=== PATIENT | male | born 1955 | race Caucasian/White ===

== ENCOUNTER 2019-10-23 02:15 | Inpatient (IN) | payer MEDICARE, MEDICAID ==
[2019-10-23 04:07] VITALS: BP 127/78
[2019-10-23] MEDS ORDERED: Maalox 30 mL Cup PO PRN (04:08)
[2019-10-23] MEDS ORDERED: Magnesium Hydroxide (MOM) 30 mL UDC PO PRN (04:08)
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
--- NOTE | 2019-10-24 11:38 | Progress Notes ---
DATE: 10/24/2019 SUBJECTIVE: The patient has been up all night. The patient has been agitated, having delusional thoughts. OBJECTIVE: VITAL SIGNS: Temperature 96.8, pulse 70, respirations 12, blood pressure 130/60. HEENT: Normocephalic, atraumatic head exam. NECK: Supple. CARDIOVASCULAR: Regular rate and rhythm. LUNGS: Decreased breath sounds. ABDOMEN: Soft, nontender. EXTREMITIES: No edema, cyanosis or clubbing. ASSESSMENT: 1. Agitation. 2. Bipolar. 3. Schizophrenia. PLAN: The patient will continue with supportive care. The patient will get his Flomax. At this time, the patient will continue with his medical management. [facility]# [id number]
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
--- NOTE | 2019-10-26 14:27 | Progress Notes ---
DATE: 10/26/2019 SUBJECTIVE: No complaints. OBJECTIVE: VITAL SIGNS: Temperature is 98.6, pulse 70, respirations 12, blood pressure 130/60. HEENT: Normocephalic, atraumatic head exam. NECK: Supple. CARDIOVASCULAR: Regular rate and rhythm. LUNGS: Decreased breath sounds. ASSESSMENT AND PLAN: Urinary incontinence. The patient has been taking Flomax without any side effects. The patient will continue with supportive care. JOB# [id number]
--- NOTE | 2019-10-27 15:19 | Progress Notes ---
DATE: 10/27/2019 PSYCHIATRIC PROGRESS NOTE SUBJECTIVE: Chart was reviewed and the patient interviewed. Also discussed the patient's condition with the staff and reviewed records and labs. The patient continued to be confused. The patient also is still anxious and is still restless. Also, still needs lots of redirections. The patient today was not able to tell me about his date. Sitting in a Anna chair and trying to get off the Anna chair and also was banging on the desk. The patient also was not able to answer any of my questions coherently because of his severe confusion as well as agitation. Otherwise, the patient is compliant with taking his medications with no side effects of medications. The patient is on the wheelchair and is not walking and unsteady gait if he tries to do so. Also, but vital signs are stable and no new labs available for review. MENTAL STATUS EXAMINATION: Disheveled. Anxious. Irritable mood. Confused. Unable to answer any of my questions currently. ASSESSMENT: The patient is still considered to be gravely disabled and is agitated. TREATMENT PLAN: Continue to monitor his behavior and his condition closely. Also, continue to work on his irritability and his poor impulse control and continue to follow up. ESTIMATED LENGTH OF STAY: 2-4 days. REASON TO CONTINUE HOSPITAL STAY: The patient is still agitated and is still in irritable mood. Needs close monitoring as well as adjusting psychotropic medications. JOB# [id number]
--- NOTE | 2019-10-28 06:41 | Progress Notes ---
DATE: 10/28/2019 SUBJECTIVE: Chart was reviewed and the patient interviewed. Also discussed the patient's condition with the staff and reviewed records and labs. The patient is pleasantly confused and he smiles for no reason, but no aggressive behavior. The patient also is still not even know his name and he is still rambling and talking nonsense. The patient also is restless and he is interacting minimally. The patient denies any hallucinations or delusions. He is still easily agitated and actively responding to stimuli. The patient is on [facility] chair and vital signs are stable and no new labs available for review. MENTAL STATUS EXAMINATION: Disheveled. Anxious. Restless. Thought processes are disorganized and incoherent. TREATMENT PLAN: We will continue to monitor the patient's behavior and condition closely. We will continue adjusting psychotropic medications and currently will continue Depakote, Seroquel and trazodone. The patient is sleeping better with trazodone. Also, continue to work on his confusion and irritability. ESTIMATED LENGTH OF STAY: 2-4 days. REASON FOR CONTINUED HOSPITAL STAY: A: The patient is still agitated and is still confused. JOB# [id number]
--- NOTE | 2019-10-29 07:23 | Progress Notes ---
DATE: 10/29/2019 SUBJECTIVE: Chart was reviewed and the patient interviewed. Also discussed the patient's condition with the staff and reviewed records and labs. The patient is still confused. The patient also is still having difficulty sleeping at night and he was awake almost most of last night according to the staff. The patient also is still restless and he is still resisting care, but at the same time decreased aggressive behavior and decreased agitation. Vital signs are stable and no new labs available for review. MENTAL STATUS EXAMINATION: Disheveled. Anxious. Restless. Disorganized thoughts. Actively responding to stimuli and talking to himself during my interview. ASSESSMENT: The patient is still psychotic and is still agitated. TREATMENT PLAN: We will continue monitoring behavior and condition closely. Also, we will change Seroquel to 50 mg twice a day and to 100 mg at bedtime. Hopefully, that can help the patient to sleep better at night and to be calmer during the day. Also, continue to work on his agitation and poor impulse control. ESTIMATED LENGTH OF STAY: 4-6 days. REASON TO CONTINUE HOSPITAL STAY: The patient is still agitated and still needs close monitoring and adjusting to psychotropic medications. JOB# [id number]
[2019-10-29] MEDS: Therahoney Gel 42.5gm Tube TP SCH (09:12)
[2019-10-29] MEDS: Multivitamin Tab PO SCH (09:13)
--- NOTE | 2019-10-29 17:23 | Progress Notes ---
DATE: 10/29/2019 SUBJECTIVE: The patient is very agitated. I am seeing this patient at the request of nursing staff and psychiatrist. PHYSICAL EXAMINATION: VITAL SIGNS: Temperature is 96.8, pulse 70, respirations 12, blood pressure 111/67. HEENT: Normocephalic, atraumatic head exam. NECK: Supple. CARDIOVASCULAR: Regular rate and rhythm. LUNGS: Clear. ABDOMEN: Soft, nontender. EXTREMITIES: No edema, cyanosis or clubbing. ASSESSMENT AND PLAN: 1. Agitation. 2. Benign prostatic hypertrophy. 3. Urinary incontinence. The patient will need to be increased on his Seroquel. I will discuss this with Dr. Mark. He will benefit from increasing and aggressive titration of the Seroquel. JOB# [id number]
--- NOTE | 2019-10-30 08:46 | Progress Notes ---
DATE: 10/30/2019 SUBJECTIVE: I reviewed the records. According to the patient, the patient is still confused and agitated. The patient is still having difficulty sleeping at night. He says words, which are incomprehensible to me. PHYSICAL EXAMINATION: VITAL SIGNS: Temperature is 98.2, pulse 80, respirations 20, blood pressure 102/50. HEENT: Normocephalic, atraumatic head exam. NECK: Supple. CARDIOVASCULAR: Regular rate and rhythm. LUNGS: Decreased breath sounds. ABDOMEN: Soft, nontender. EXTREMITIES: No edema, cyanosis or clubbing. ASSESSMENT: 1. Thrombocytopenia. 2. Agitation. 3. Benign prostatic hypertrophy. 4. Urinary incontinence. PLAN: The patient will continue with Psych management by Dr. Mark. We will repeat CBC, CMP, TSH, and other labs. Discussed the care plan with nursing staff. Of note, the patient has not had any falls or unsteady gait. JOB# [id number]
[2019-10-30] MEDS: Multivitamin Tab PO SCH (09:25)
[2019-10-30] MEDS: Therahoney Gel 42.5gm Tube TP SCH (09:26)
--- NOTE | 2019-10-31 03:46 | Progress Notes ---
DATE: 10/30/2019 SUBJECTIVE: Chart was reviewed and the patient interviewed. Also discussed the patient's condition with the staff and reviewed records and labs. The patient is still confused and he is still mumbling in Lithuanian language. The patient also is still easily irritable and easily agitated. Also, he is still restless and anxious and unable to follow directions. Otherwise, the patient is compliant with taking his medications with no side effects of medications. Patient's gait is steady. Vital signs are stable and no new labs available for review. MENTAL STATUS EXAMINATION: Disheveled. Anxious. Confused and restless. ASSESSMENT: The patient is still confused and is still psychotic. TREATMENT PLAN: Continue to monitor behavior and condition closely. Also, continue Seroquel, Depakote and trazodone same dose. Also, continue to work on discharge plans and placement issue. ESTIMATED LENGTH OF STAY: 2-4 days. REASON FOR CONTINUED HOSPITAL STAY: The patient is still psychotic and agitated and can be dangerous to others. JOB# [id number]
[2019-10-31] MEDS: Multivitamin Tab PO SCH (08:24)
[2019-10-31] MEDS: Therahoney Gel 42.5gm Tube TP SCH (08:24)
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
[2019-11-01] MEDS: Multivitamin Tab PO SCH (08:36)
[2019-11-01] MEDS: Therahoney Gel 42.5gm Tube TP SCH (08:37)
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
[2019-11-02] MEDS: Therahoney Gel 42.5gm Tube TP SCH (08:33)
[2019-11-02] MEDS: Multivitamin Tab PO SCH (08:33)
--- NOTE | 2019-11-02 13:51 | Progress Notes ---
DATE: 11/02/2019 SUBJECTIVE: The patient has no fevers, no chills, no night sweats. The patient is still saying words that are incomprehensible to me. OBJECTIVE: VITAL SIGNS: Temperature is 98.0, pulse 59, respirations 20, blood pressure is 92/55. HEENT: Normocephalic, atraumatic head exam. NECK: Supple. CARDIOVASCULAR: Regular rate and rhythm. LUNGS: Decreased breath sounds. ABDOMEN: Soft, nontender. EXTREMITIES: No edema, cyanosis or clubbing. ASSESSMENT AND PLAN: 1. Agitation. 2. Benign prostatic hypertrophy. 3. Thrombocytopenia. 4. Psychosis. The patient will continue with supportive care. The patient has not had fallen and patient has not had any evidence of ataxia. We will continue with supportive care. [facility]# [id number]
--- NOTE | 2019-11-02 15:46 | Progress Notes ---
DATE: SUBJECTIVE: Chart was reviewed and the patient interviewed. Also discussed the patient's condition with the staff and reviewed records and labs. The patient continued to be severely confused and he is still restless and in irritable mood. The patient also is still agitated and still has episodes of aggression, but not as much and easy to redirect him. He also still compliant with taking his medications with no side effects of Seroquel in a dose of 50 mg twice a day and 200 mg at bedtime as well as Depakote 500 mg twice a day and trazodone 150 mg at bedtime. The patient's gait is steady and vital signs are stable and Depakote blood level that was done upon admission came to be 33 MENTAL STATUS EXAMINATION: Anxious. Confused. Mumbling and talking to self in Swedish language. ASSESSMENT: The patient is still confused and agitated. TREATMENT PLAN: We will continue to monitor behavior and condition closely. Also, continue to monitor Depakote blood level and continue to follow up closely ESTIMATED LENGTH OF STAY: 2-4 days. REASON FOR CONTINUED HOSPITAL STAY: The patient is still agitated and irritable mood and needs close monitoring. JOB# [id number]
--- NOTE | 2019-11-03 07:21 | Discharge Summary ---
DATE OF DISCHARGE: 11/03/2019 FINAL DIAGNOSIS AND PRIMARY DIAGNOSIS: Schizoaffective disorder, bipolar type, severe, with psychotic features. REASON FOR HOSPITALIZATION: The patient was admitted to the hospital on a 5150 hold by [employer] for dangers to self and others after the patient was aggressive with the staff in the retirement where he was living and he was urinating on himself and defecating on himself and he was not able to give any plan for self-care. HOSPITAL COURSE: The patient continued to be confused. The patient has also had episodes of agitation. The patient was given Depakote and the dose adjusted to 500 mg twice a day and also was given Seroquel and the dose adjusted to 50 mg twice a day and 200 mg at bedtime. The patient also had difficulty sleeping at night and he was given trazodone in a dose of 150 mg at bedtime that helped the patient sleep better at night. The patient was less irritable and less agitated. Also, interacted more appropriately. The patient also was not psychotic or aggressive. Placement was an issue, but the patient was accepted in [facility] and the patient was discharged there. Physical exam of the patient showed no major medical issues, but the patient was monitored closely by Dr. Gtz. AFTER-DISCHARGE PLANS: The patient was discharged from the hospital and the patient was accepted by [facility] with plan to follow him there. EXPECTED OUTCOME AFTER DISCHARGE: Fair if the patient continues to take his medications and follow up with discharge plans. [facility]# [id number]
[2019-11-03] MEDS: Multivitamin Tab PO SCH (09:18)
[2019-11-03] MEDS: Therahoney Gel 42.5gm Tube TP SCH (09:18)
== END 2019-11-03 15:30 | DRG 885 ==
LOC: GERO 02:15
PROVIDERS: ADMIT Psychiatry & Neurology Psychiatry; ATTEND Psychiatry & Neurology Psychiatry
DX: F25.0 Schizoaffective disorder, bipolar type (principal); F31.9 Bipolar disorder, unspecified; N40.0 Benign prostatic hyperplasia without lower urinary tract symptoms; R32 Unspecified urinary incontinence
CPT/HCPCS: 82948-90; 83036-90; 90899; 97530; G0410; X3904; Z7610